=== PATIENT | female | born 1940 | race Caucasian/White ===

== ENCOUNTER 2017-06-09 21:12 | Emergency (ER) | payer MEDICARE ==
[2017-06-09] MEDS ORDERED: HYDROCODONE/APAP 7.5/325MG TABLET PO ONE (21:42)
--- NOTE | 2017-06-09 21:48 | Emergency Department Record ---
History of Present Illness - General Chief complaint: Pain Stated complaint: FELL ON LT ARM/PAIN Time Seen by Provider: 06/09/17 21:42 Source: Patient Mode of Arrival: Ambulatory Limitations: No limitations - History of Present Illness Initial comments: 76 yo female presents to ED for evaluation of left shoulder pain following and slip and fall several hours ago. Patient denies injury below the mid-humerus, denies head of neck injury, and denies lower extremity injury on examination. Patient reports taking Tylenol #3 prior to arrival which has not improved her symptoms. Patient denies the use of anticoagulation medications as well. MD Complaint: Extremity pain Onset/Timin -: Hour(s) Location: Left, Arm, Elbow History of Same: Yes Radiation: None Severity scale (1-10): 2 Consistency: Constant, Intermittent Improves with: Immobilization, Rest Worsens with: Exertion - Related Data Previous Rx's Medication Instructions Recorded Hydrocodone/Acetaminophen [[place] 1 each PO Q6HR PRN #15 tablet 03/22/14 5mg/325mg] Albuterol Sulfate [Ventolin Hfa] 1 puff INH RESP.Q4H PRN #1 inhaler 08/21/15 Fluticasone/Salmeterol 250/50 1 puff INH RESP.Q12H #1 disk 08/21/15 [Advair 250/50] Levofloxacin [Levaquin] 500 mg PO DAILY #12 tablet 08/21/15 Hydrocodone/Acetaminophen [[place] 1 tab PO Q6H PRN #15 tab 06/09/17 5mg/325mg] Allergies Allergy/AdvReac Type Severity Reaction Status Date / Time animal dander Allergy Intermediate DIFFICULTY Verified 06/09/17 21:22 BREATHING ibuprofen [IBUPROFEN] Allergy Unknown CONGESTION Verified 06/09/17 21:22 Penicillins [PENICILLINS] Allergy Unknown PT UNSURE Verified 06/09/17 21:22 OF REACTION Travel Screening - Travel/Exposure Within Last 30 Days Have you traveled within the last 30 days?: No - Travel/Exposure Within Last Year Have you traveled outside the [place] in the last year?: Yes Location Detail:: [place] - Additonal Travel Details Have you been exposed to anyone with a communicable illness?: No - Travel Symptoms Symptom Screening: None Review of Systems Constitutional: Denies: Chills, Fever, Malaise, Night sweats Eyes: Denies: Eye discharge, Eye pain ENT: Denies: Congestion, Ear pain, Epistaxis Respiratory: Denies: Cough, Dyspnea Cardiovascular: Denies: Chest pain, Dyspnea on exertion Endocrine: Denies: Fatigue, Heat or cold intolerance Gastrointestinal: Denies: Abdominal pain, Nausea, Vomiting Genitourinary: Denies: Incontinence, Retention Musculoskeletal: Reports: Arthralgia. Denies: Back pain, Gout, Joint swelling Skin: Denies: Bruising, Change in color Neurological: Denies: Abnormal gait, Confusion, Headache, Seizure Psychiatric: Denies: Anxiety Hematological/Lymphatic: Denies: Anemia, Blood Clots Past Medical History - SOCIAL HISTORY Smoking Status: Former smoker Alcohol Use: Occasional Drug Use: None - RESPIRATORY Hx Respiratory Disorders: Yes Hx Asthma: Yes - CARDIOVASCULAR Hx Cardio Disorders: Yes Hx Hypertension: Yes - NEURO Hx Neuro Disorders: No - GI Hx GI Disorders: Yes Hx Wt Loss/Wt Gain: Yes - Hx Genitourinary Disorders: No - ENDOCRINE Hx Endocrine Disorders: Yes Hx Diabetes: Yes - MUSCULOSKELETAL Hx Musculoskeletal Disorders: Yes Hx Arthritis: Yes - PSYCH Hx Psych Problems: Yes Hx Anxiety: Yes Comment:: panic attacks - HEMATOLOGY/ONCOLOGY Hx Hematology/Oncology Disorders: No Family Medical History Any Significant Family History?: No Hx Anxiety: Mother Hx Cancer: Mother Hx Depression: Mother Hx Diabetes: Mother Physical Exam - General General Appearance: Alert, Oriented x3, Cooperative, Moderate distress Limitations: No limitations - Head Head exam: Atraumatic, Normocephalic, Normal inspection Head exam detail: negative: Abrasion, Contusion, Alvarez's sign, General tenderness, Hematoma, Laceration - Eye Eye exam: Normal appearance. negative: Conjunctival injection, Periorbital swelling, Periorbital tenderness, Scleral icterus - ENT Ear exam: negative: Auricular hematoma, Auricular trauma Nasal Exam: negative: Active bleeding, Discharge, Dried blood, Foreign body Mouth exam: negative: Drooling, Laceration, Muffled voice, Tongue elevation - Neck Neck exam: Normal inspection. negative: Meningismus, Tenderness - Respiratory Respiratory exam: Normal lung sounds bilaterally. negative: Rales, Respiratory distress, Rhonchi, Stridor - Cardiovascular Cardiovascular Exam: Regular rate, Normal rhythm, Normal heart sounds Peripheral Pulses: 3+: Radial (L) - GI/Abdominal GI/Abdominal exam: Soft. negative: Rebound, Rigid, Tenderness - Rectal Rectal exam: Deferred - exam: Deferred - Extremities Extremities exam: Tenderness, Other (TTP along the midshaft of the left humerus , no gross deformity is noted, strong distal radial pulse on examination). negative: Calf tenderness, Pedal edema - Back Back exam: Denies: CVA tenderness (R), CVA tenderness (L) - Neurological Neurological exam: Alert, Normal gait, Oriented X3 - Psychiatric Psychiatric exam: Normal affect, Normal mood - Skin Skin exam: Normal color. negative: Abrasion Type of lesion: negative: abrasion Course Vital Signs 06/09/17 21:27 Temperature 98.2 F Pulse Rate [ 89 Pulse Ox Probe] Respiratory 20 Rate Blood Pressure 134/48 [Right Arm] Pulse Ox 93 L - Reevaluation(s) Reevaluation #1: 06/09/17 22:24 Left shoulder/Humerus: Non-displaced femoral neck fracture Patient was updated on her results, will place in sling with instructions to follow-up in the [facility] later this week with Dr. Berry. Disposition Disposition: Discharge Clinical Impression: Proximal humerus fracture Qualifiers: Encounter type: initial encounter Fracture type: closed Fracture morphology: unspecified fracture morphology Laterality: left Qualified Code(s): S42.202A - Unspecified fracture of upper end of left humerus, initial encounter for closed fracture Disposition: Home, Self-Care Condition: (2) Stable Instructions: Proximal Humerus Fracture (ED) Additional Instructions: Return to ED if your symptoms worsen or if you have any concerns. Jim as directed. Follow-up with Dr. Berry in 2-3 days as directed. Prescriptions: Hydrocodone/Acetaminophen [[place] 5mg/325mg] 1 tab PO Q6H PRN #15 tab PRN Reason: Pain - General Referrals: ILIR BERRY [DOCTOR OF OSTEOPATH] - [facility] [Provider Group] Forms: Patient Portal Access Time of Disposition: 22:22 Quality - Quality Measures Quality Measures: N/A - Blood Pressure Screening Does Patient Have Any of the Following: No Blood Pressure Classification: Pre-Hypertensive BP Reading Systolic Measurement: 134 Diastolic Measurement: 48 Screening for High Blood Pressure: < Pre-Hypertensive BP, F/U Documented > [ G8950] Pre-Hypertensive Follow-up Interventions: Referral to alternative/primary care provider.
--- NOTE | 2017-06-10 09:28 | RADIOLOGY REPORT ---
EXAM: LEFT HUMERUS HISTORY: INJURY. TECHNIQUE: Two views of the left humerus were performed. FINDINGS: There is a left humeral neck fracture deformity. No evidence of dislocation. Underlying osteopenia. IMPRESSION: LEFT HUMERAL NECK FRACTURE DEFORMITY. UNDERLYING OSTEOPENIA. JOB NUMBER: [id number] MTDD
--- NOTE | 2017-06-10 09:30 | RADIOLOGY REPORT ---
EXAM: LEFT SHOULDER HISTORY: INJURY. TECHNIQUE: Three views of the left shoulder were performed. FINDINGS: There is a left humeral neck fracture deformity. Underlying osteopenia. IMPRESSION: LEFT HUMERAL NECK FRACTURE DEFORMITY. JOB NUMBER: [id number] MTDD
== END 2017-06-09 22:42 | disposition home or self-care (01) ==
LOC: ER 21:12
DX: S42.215A Unspecified nondisplaced fracture of surgical neck of left humerus, initial encounter for closed fracture (principal); M25.512 Pain in left shoulder; W00.0XXA Fall on same level due to ice and snow, initial encounter; Y92.481 Parking lot as the place of occurrence of the external cause
CPT/HCPCS: 99283; 99284

== ENCOUNTER 2017-06-21 07:31 | Emergency (ER) | payer MEDICARE ==
[2017-06-21] MEDS ORDERED: HYDROMORPHONE HCL 1 MG/ML SYRINGE IVP ONE ×2 (08:24→11:17)
[2017-06-21] MEDS ORDERED: ONDANSETRON HCL IV 4 MG/2 ML VIAL IVP ONE (08:24)
[2017-06-21 09:04] LABS: BASO % 0.6 % (0-6); EOS % 3.9 % (0-6); GRAN % 74.7 % (47-80); HEMATOCRIT 42.1 % (35.0-47.0); HEMOGLOBIN 13.9 gm/dl (11.6-16.0); MEAN CELL VOLUME 95.2 fl (81-97); MEAN CORPUSCULAR HEMOGLOBIN 31.4 pg (27-33); MEAN PLATELET VOLUME 9.9 fl (7.4-10.4); MONO % 7.8 % (0-9); PLATELET COUNT 263 K/uL (130-400); RED BLOOD COUNT 4.42 M/uL (3.80-5.40); RED CELL DISTRIBUTION WIDTH 13.7 % (11.5-14.5); WHITE BLOOD COUNT W/O DIFF 6.7 K/uL (4.2-12.2)
[2017-06-21 09:12] LABS: BLOOD UREA NITROGEN 11 mg/dL (8-23); CREATININE 0.5 mg/dL (0.5-0.9); EST GLOMERULAR FILTRATION RATE > 60 mL/min
[2017-06-21 09:15] LABS: GLUCOSE,RANDOM 163 mg/dL (74-109)
--- NOTE | 2017-06-21 11:34 | Emergency Department Record ---
Anxiety - General Chief Complaint: Anxiety Stated Complaint: PANIC ATTACK Time Seen by Provider: 06/21/17 08:09 Source: Patient Mode of Arrival: Ambulatory Limitations: No limitations - History of Present Illness Initial Comments: pt awakened with panic attack. she she felt palpitations. she has had panic attacks, she feels short of breath. she has a fxd humerus from 11 days ago. Onset/Timin -: Hour(s) Symptoms: Palpitations, Other Place: Home Previous History of Same: Yes Severity: Moderate Quality: Constant, Improving Provoking factors: Emotional stress, Other Improves With: Nothing, Deep breaths Worsens With: Other Associated symptoms: Palpitations - Related Data Home Medications: Previous Rx's Medication Instructions Recorded Albuterol Sulfate [Ventolin Hfa] 1 puff INH RESP.Q4H PRN #1 inhaler 08/21/15 Fluticasone/Salmeterol 250/50 1 puff INH RESP.Q12H #1 disk 08/21/15 [Advair 250/50] Hydrocodone/Acetaminophen [[place] 1 tab PO Q6H PRN #15 tab 06/09/17 5mg/325mg] Allergies/Adverse Reactions: Allergies Allergy/AdvReac Type Severity Reaction Status Date / Time animal dander Allergy Intermediate DIFFICULTY Verified 06/21/17 07:44 BREATHING ibuprofen [IBUPROFEN] Allergy Unknown CONGESTION Verified 06/21/17 07:44 Penicillins [PENICILLINS] Allergy Unknown PT UNSURE Verified 06/21/17 07:44 OF REACTION Travel Screening - Travel/Exposure Within Last 30 Days Have you traveled within the last 30 days?: Yes Location Detail:: [place] - Travel/Exposure Within Last Year Have you traveled outside the [place] in the last year?: Yes Location Detail:: [place] in January - Additonal Travel Details Have you been exposed to anyone with a communicable illness?: No - Travel Symptoms Symptom Screening: None Review of Systems Reviewed: No additional complaints except as noted below Constitutional: Reports: As per HPI. Denies: Chills, Fever, Malaise, Night sweats, Weakness, Weight change Eyes: Reports: As per HPI. Denies: Eye discharge, Eye pain, Photophobia, Vision change ENT: Reports: As per HPI. Denies: Congestion, Dental pain, Ear pain, Epistaxis , Hearing loss, Throat pain Respiratory: Reports: As per HPI. Denies: Cough, Dyspnea, Hemoptysis, Stridor, Wheezes Cardiovascular: Reports: As per HPI. Denies: Arrhythmia, Chest pain, Dyspnea on exertion, Edema, Murmurs, Orthopnea, Palpitations, Paroxysmal nocturnal dyspnea, Rheumatic Fever, Syncope Endocrine: Reports: As per HPI. Denies: Fatigue, Heat or cold intolerance, Polydipsia, Polyuria Gastrointestinal: Reports: As per HPI. Denies: Abdominal pain, Constipation, Diarrhea, Hematemesis, Hematochezia, Melena, Nausea, Vomiting Genitourinary: Reports: As per HPI. Denies: Abnormal menses, Discharge, Dyspareunia, Dysuria, Frequency, Hematuria, Incontinence, Retention, Urgency Musculoskeletal: Reports: As per HPI. Denies: Arthralgia, Back pain, Gout, Joint swelling, Myalgia, Neck pain Skin: Reports: As per HPI. Denies: Bruising, Change in color, Change in hair/ nails, Lesions, Pruritus, Rash Neurological: Reports: As per HPI. Denies: Abnormal gait, Confusion, Headache, Numbness, Paresthesias, Seizure, Tingling, Tremors, Vertigo, Weakness Psychiatric: Reports: As per HPI. Denies: Anxiety, Auditory hallucinations, Depression, Homicidal thoughts, Suicidal thoughts, Visual hallucinations Hematological/Lymphatic: Reports: As per HPI. Denies: Anemia, Blood Clots, Easy bleeding, Easy bruising, Swollen glands Past Medical History - SOCIAL HISTORY Smoking Status: Former smoker Alcohol Use: Occasional Drug Use: None - RESPIRATORY Hx Respiratory Disorders: Yes Hx Asthma: Yes - CARDIOVASCULAR Hx Cardio Disorders: Yes Hx Hypertension: Yes - NEURO Hx Neuro Disorders: No - GI Hx GI Disorders: Yes Hx Wt Loss/Wt Gain: Yes - Hx Genitourinary Disorders: No - ENDOCRINE Hx Endocrine Disorders: Yes Hx Diabetes: Yes - MUSCULOSKELETAL Hx Musculoskeletal Disorders: Yes Hx Arthritis: Yes - PSYCH Hx Psych Problems: Yes Hx Anxiety: Yes Comment:: panic attacks - HEMATOLOGY/ONCOLOGY Hx Hematology/Oncology Disorders: No Family Medical History Any Significant Family History?: Yes Hx Anxiety: Mother Hx Cancer: Mother Hx Depression: Mother Hx Diabetes: Mother Physical Exam - General General Appearance: Alert, Oriented x3, Cooperative, Mild distress - Head Head exam: Normal inspection - Eye Eye exam: Normal appearance, PERRL, EOMI Pupils: Normal accommodation - ENT ENT exam: Normal exam, Mucous membranes moist, Normal external ear exam, Normal orophraynx, TM's normal bilaterally Ear exam: Normal external inspection. negative: External canal tenderness Nasal Exam: Normal inspection. negative: Discharge, Sinus tenderness Mouth exam: Normal external inspection, Tongue normal Teeth exam: Normal inspection. negative: Dental caries Throat exam: Normal inspection. negative: Tonsillar erythema, Tonsillar exudate - Neck Neck exam: Normal inspection, Full ROM. negative: Tenderness - Respiratory Respiratory exam: Normal lung sounds bilaterally. negative: Respiratory distress - Cardiovascular Cardiovascular Exam: Regular rate, Normal rhythm, Normal heart sounds - GI/Abdominal GI/Abdominal exam: Soft, Normal bowel sounds. negative: Tenderness - Rectal Rectal exam: Deferred - exam: Deferred - Extremities Extremities exam: Normal inspection, Full ROM, Normal capillary refill. negative: Tenderness - Back Back exam: Reports: Normal inspection, Full ROM. Denies: Muscle spasm, Rash noted, Tenderness - Neurological Neurological exam: Alert, CN II-XII intact, Normal gait, Oriented X3 - Psychiatric Psychiatric exam: Normal affect, Normal mood - Skin Skin exam: Dry, Intact, Normal color, Warm Course Vital Signs 06/21/17 06/21/17 07:49 09:31 Temperature 97.8 F Pulse Rate 85 Pulse Rate [ 85 Apical] Respiratory 19 18 Rate Blood Pressure 172/101 Blood Pressure 165/87 [Right Arm] Pulse Ox 92 L Medical Decision Making - Lab Data Result diagrams: 06/21/17 08:50 06/21/17 08:50 Lab Results 06/21/17 06/21/17 06/21/17 Range/Units 08:50 08:50 08:50 WBC 6.7 (4.2-12.2) K/uL RBC 4.42 (3.80-5.40) M/uL Hgb 13.9 (11.6-16.0) gm/dl Hct 42.1 (35.0-47.0) % MCV 95.2 (81-97) fl MCH 31.4 (27-33) pg MCHC 33.0 (32-36) g/dl RDW 13.7 (11.5-14.5) % Plt Count 263 (130-400) K/uL MPV 9.9 (7.4-10.4) fl Gran % 74.7 (47-80) % Lymphocytes % 13.0 L (16-45) % Monocytes % 7.8 (0-9) % Eosinophils % 3.9 (0-6) % Basophils % 0.6 (0-6) % D-Dimer 4.21 H (0-0.59) mg/L FEU Sodium 140 (136-145) mmol/L Potassium 3.8 (3.4-4.5) mmol/L Chloride 95 L (98-107) mmol/L Carbon Dioxide 35.0 H (22-29) mmol/L Anion Gap 10.0 (7-16) BUN 11 (8-23) mg/dL Creatinine 0.5 (0.5-0.9) mg/dL Estimated GFR > 60 mL/min Random Glucose 163 H (74-109) mg/dL Calcium 9.2 (8.8-10.2) mg/dL Troponin T (0-0.010) ng/mL 06/21/17 Range/Units 08:50 WBC (4.2-12.2) K/uL RBC (3.80-5.40) M/uL Hgb (11.6-16.0) gm/dl Hct (35.0-47.0) % MCV (81-97) fl MCH (27-33) pg MCHC (32-36) g/dl RDW (11.5-14.5) % Plt Count (130-400) K/uL MPV (7.4-10.4) fl Gran % (47-80) % Lymphocytes % (16-45) % Monocytes % (0-9) % Eosinophils % (0-6) % Basophils % (0-6) % D-Dimer (0-0.59) mg/L FEU Sodium (136-145) mmol/L Potassium (3.4-4.5) mmol/L Chloride (98-107) mmol/L Carbon Dioxide (22-29) mmol/L Anion Gap (7-16) BUN (8-23) mg/dL Creatinine (0.5-0.9) mg/dL Estimated GFR mL/min Random Glucose (74-109) mg/dL Calcium (8.8-10.2) mg/dL Troponin T < 0.010 (0-0.010) ng/mL Disposition Disposition: Discharge Clinical Impression: Anxiety, Pain Disposition: Home, Self-Care Condition: (1) Good Instructions: Panic Attack (ED) Additional Instructions: follow up with dr taylor and family return sooner if worse Quality - Quality Measures Quality Measures: N/A - Blood Pressure Screening Does Patient Have Any of the Following: Active Dx of HTN Blood Pressure Classification: Hypertensive Reading Systolic Measurement: 172 Diastolic Measurement: 101 Screening for High Blood Pressure: Patient Exclusion, Hx of HTN [G9744]
--- NOTE | 2017-06-21 19:23 | CT ANGIOGRAM REPORT ---
EXAM: CT ANGIOGRAM CHEST CTA w contrast HISTORY: PANIC ATTACK. TECHNIQUE: CTA chest performed following IV administration of 94 mL of Omnipaque-350 contrast. Axial images were obtained with coronal and sagittal MIP reconstructions. COMPARISON: Prior CT chest 08/19/15. FINDINGS: The mediastinal vasculature enhances normally. No intraluminal filling defect to suggest pulmonary embolus. Negative for thoracic aortic aneurysm or dissection. Cardiomegaly with coronary artery calcification. Small hiatal hernia. No mediastinal or hilar adenopathy. Postsurgical changes of the upper abdomen. Osseous structures are grossly intact. No pneumothorax. The visualized airways are patent. Stable 9 mm nodule in the posterior left lung base. Minor scarring in each lung base. No new lung nodules or masses. IMPRESSION: 1. NEGATIVE FOR PULMONARY EMBOLUS, THORACIC AORTIC ANEURYSM, OR DISSECTION. 2. CARDIOMEGALY WITH SMALL PERICARDIAL EFFUSION. STABLE 9 MM NODULE IN THE LEFT LUNG BASE. JOB NUMBER: [id number] MTDD
== END 2017-06-21 11:47 | disposition home or self-care (01) ==
LOC: ER 07:31
DX: F41.0 Panic disorder [episodic paroxysmal anxiety] (principal); R06.02 Shortness of breath; R00.2 Palpitations; I10 Essential (primary) hypertension; F17.210 Nicotine dependence, cigarettes, uncomplicated
CPT/HCPCS: 99284 ×2; 96376; 96374; 96375; 85025; 80048; 84484; 85379; 71275; 93005; 93010; Q9967; J2405; J1170

== ENCOUNTER 2019-05-09 12:37 | Observation (INO) | payer MEDICARE ==
[2019-05-09] MEDS ORDERED: IPRATROPIUM/ALBUTEROL (0.5MG/3MG) NEB INH ONE (12:49)
[2019-05-09] MEDS ORDERED: METHYLPREDNISOLONE PF 125MG/VIAL IM ONE (12:49)
--- NOTE | 2019-05-09 12:59 | Emergency Department Record ---
History of Present Illness - General Chief Complaint: Difficulty Breathing Stated Complaint: ELMA/COPD Time Seen by Provider: 05/09/19 12:49 Source: Patient, Family Mode of Arrival: Ambulatory Limitations: No limitations - History of Present Illness Initial Comments: 78 yo female presents with progressive shortness of breath over the week. She reports she has a history of COPD. 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 She states Spiriva was added to her mediations. She has been on her usually treatments and not feeling better. She states to me that she was told she qualified for home oxygen. She has not had that set up yet. She states she has "45%" function. She quit smoking many years ago. She developed asthma at age 21. PCP is in [place]. Pulmonary is Dr Powell. She denies chest pain or edema. MD Complaint: Shortness of breath -: Week(s) (1) Severity: Moderate Quality: Other (short of breath) Consistency: Intermittent Improves With: Nothing Worsens With: Exertion Known History Of: COPD Context: Other Associated Symptoms: Denies other symptoms Treatments Prior to Arrival: Bronchodilator - Related Data Home Oxygen Therapy: No Previous Rx's Medication Instructions Recorded Albuterol Sulfate [Ventolin Hfa] 1 puff INH RESP.Q4H PRN #1 inhaler 08/21/15 Fluticasone/Salmeterol 250/50 1 puff INH RESP.Q12H #1 disk 08/21/15 [Advair 250/50] Allergies Allergy/AdvReac Type Severity Reaction Status Date / Time animal dander Allergy Intermediate DIFFICULTY Verified 05/09/19 12:48 BREATHING ibuprofen [IBUPROFEN] Allergy Unknown CONGESTION Verified 05/09/19 12:48 Penicillins [PENICILLINS] Allergy Unknown PT UNSURE Verified 05/09/19 12:48 OF REACTION Review of Systems Constitutional: Denies: Chills, Fever, Malaise, Weakness Eyes: Denies: Eye discharge ENT: Denies: Congestion, Throat pain Respiratory: Reports: Dyspnea, Wheezes. Denies: Cough, Hemoptysis, Stridor Cardiovascular: Reports: Dyspnea on exertion. Denies: Chest pain, Edema, Palpitations, Syncope Endocrine: Denies: Fatigue, Polydipsia, Polyuria Gastrointestinal: Denies: Abdominal pain, Diarrhea, Nausea, Vomiting Genitourinary: Denies: Dysuria, Urgency Musculoskeletal: Denies: Arthralgia, Back pain, Myalgia Skin: Denies: Bruising, Change in color, Rash Neurological: Denies: Headache Psychiatric: Denies: Anxiety Hematological/Lymphatic: Denies: Easy bleeding, Easy bruising Past Medical History - SOCIAL HISTORY Smoking Status: Former smoker Drug Use: None - RESPIRATORY Hx Respiratory Disorders: Yes Hx Asthma: Yes - CARDIOVASCULAR Hx Cardio Disorders: Yes Hx Hypertension: Yes - NEURO Hx Neuro Disorders: No - GI Hx GI Disorders: Yes Hx Wt Loss/Wt Gain: Yes - Hx Genitourinary Disorders: No - ENDOCRINE Hx Endocrine Disorders: Yes Hx Diabetes: Yes - MUSCULOSKELETAL Hx Musculoskeletal Disorders: Yes Hx Arthritis: Yes - PSYCH Hx Psych Problems: Yes Hx Anxiety: Yes Comment:: panic attacks - HEMATOLOGY/ONCOLOGY Hx Hematology/Oncology Disorders: No Family Medical History Hx Anxiety: Mother Hx Cancer: Mother Hx Depression: Mother Hx Diabetes: Mother Physical Exam - General General Appearance: Alert, Oriented x3, Cooperative, No acute distress Limitations: No limitations - Head Head exam: Atraumatic, Normal inspection - Eye Eye exam: Normal appearance, PERRL. negative: Conjunctival injection, Scleral icterus - ENT ENT exam: Normal exam, Mucous membranes moist Ear exam: Normal external inspection Nasal Exam: Normal inspection Mouth exam: Normal external inspection - Neck Neck exam: Normal inspection - Respiratory Respiratory exam: Accessory muscle use, Decreased breath sounds, Prolonged expiratory, Wheezes. negative: Normal lung sounds bilaterally, Chest wall tenderness, Rales, Respiratory distress, Rhonchi, Stridor - Cardiovascular Cardiovascular Exam: Regular rate, Normal rhythm, Normal heart sounds Peripheral Pulses: 2+: Radial (R), Radial (L) - GI/Abdominal GI/Abdominal exam: Soft. negative: Tenderness - Rectal Rectal exam: Deferred - exam: Deferred - Extremities Extremities exam: Normal inspection. negative: Tenderness - Back Back exam: Denies: CVA tenderness (R), CVA tenderness (L) - Neurological Neurological exam: Alert, Oriented X3 - Psychiatric Psychiatric exam: Normal affect, Normal mood. negative: Agitated, Anxious - Skin Skin exam: Dry, Intact, Normal color, Warm Course - Reevaluation(s) Reevaluation #1: 05/09/19 13:21 EKG #1: 13:12 Rate: 73 Rhythm: sinus [place]: L Intervals: QRS 151, Qtc 489 ST segments: CW BBB Prior: 06/21/17 no significant changes 05/09/19 14:23 Labs were reviewed No acute abnormality She does drop into the upper 80's off oxygen I recommend OBV with oxygen, nebulized treatments, and steroids Kemi Barnrad [employer] for the admission Medical Decision Making - Lab Data Result diagrams: 05/09/19 13:05 05/09/19 13:05 Disposition Disposition: Admit Clinical Impression: COPD exacerbation Disposition: Still a Patient at [facility] Decision to Admit: Admit from ER Decision to Admit Date: 05/09/19 Decision to Admit Time: 14:25 Condition: (2) Stable Time of Disposition: 14:26 Quality - Quality Measures Quality Measures: N/A - Blood Pressure Screening Does Patient Have Any of the Following: Active Dx of HTN Blood Pressure Classification: Pre-Hypertensive BP Reading Systolic Measurement: 171 Diastolic Measurement: 89 Screening for High Blood Pressure: Patient Exclusion, Hx of HTN [G9744]
[2019-05-09 13:18] LABS: ABSOLUTE NEUTROPHIL COUNT 4.44; BASO % 0.3 % (0-6); EOS % 2.2 % (0-6); GRAN % 76.9 % (47-80); HEMATOCRIT 40.2 % (35.0-47.0); MEAN CELL VOLUME 97.8 fl (81-97); MEAN CORPUSCULAR HEMOGLOBIN 29.2 pg (27-33); MEAN CORPUSCULAR HGB CONC 29.9 g/dl (32-36); MEAN PLATELET VOLUME 9.6 fl (7.4-10.4); MONO % 6.6 % (0-9); PLATELET COUNT 198 K/uL (130-400); RED BLOOD COUNT 4.11 M/uL (3.80-5.40); RED CELL DISTRIBUTION WIDTH 14.9 % (11.5-14.5); WHITE BLOOD COUNT W/O DIFF 5.8 K/uL (4.2-12.2)
[2019-05-09 13:31] LABS: BLOOD UREA NITROGEN 12 mg/dL (8-23); CREATININE 0.5 mg/dL (0.5-0.9); EST GLOMERULAR FILTRATION RATE > 60 mL/min
[2019-05-09 13:32] LABS: TOTAL PROTEIN 6.7 g/dL (6.6-8.7)
[2019-05-09 13:34] LABS: GLUCOSE,RANDOM 241 mg/dL (74-109)
[2019-05-09 13:36] LABS: ALT/SGPT 47 U/L (<33)
[2019-05-09 13:37] LABS: ALB/GLOB RATIO 1.5 (1.1-1.8); ALKALINE PHOSPHATASE 87 U/L (35-104); AST/SGOT 32 U/L (10.0-35.0)
--- NOTE | 2019-05-09 13:48 | RADIOLOGY REPORT ---
EXAMINATION: Two View Chest Radiographs EXAM DATE: 05/09/2019 1:37 PM TECHNIQUE: Frontal and lateral views INDICATION: short of breath, copd COMPARISON: 2017 chest x-ray ENCOUNTER: Not applicable FINDINGS: The heart is enlarged but the pulmonary vascularity appears within normal limits. No lung consolidati on or pleural effusions are present. Subsegmental atelectasis is present within both lung bases, righ t worse than left. IMPRESSION: No acute cardiopulmonary abnormality. Dictated by: Gadiel Ramirez MD on 05/09/2019 1:46 PM. .
[2019-05-09] MEDS ORDERED: ALBUTEROL SULFATE (0.083%) 2.5 MG/3 ML NEB INH PRN (17:21)
[2019-05-09] MEDS ORDERED: IPRATROPIUM/ALBUTEROL (0.5MG/3MG) NEB INH SCH (18:00)
[2019-05-09] MEDS: METHYLPREDNISOLONE PF 125MG/VIAL IVP SCH ×2 (18:29→21:50)
[2019-05-09] MEDS ORDERED: IPRATROPIUM/ALBUTEROL (0.5MG/3MG) NEB INH PRN (19:11)
[2019-05-09] MEDS ORDERED: CEFTRIAXONE 1GM/50ML BAG 1 GM/50 ML BAG IVPB SCH (20:30)
[2019-05-09] MEDS ORDERED: AZITHROMYCIN 500 MG in 0.9 % SODIUM CHLORIDE 250ML 250 ML IVPB SCH (21:00)
[2019-05-09] MEDS: DOXYCYCLINE HYCLATE 100 MG CAPSULE PO SCH (21:51)
[2019-05-09] MEDS: CARVEDILOL 3.125 MG TABLET PO SCH (21:54)
[2019-05-09] MEDS: ASPIRIN 81 MG TABEC PO SCH (21:54)
[2019-05-09] MEDS: ATORVASTATIN 20 MG TABLET PO SCH (21:55)
[2019-05-09] MEDS ORDERED: PREGABALIN 50 MG CAPSULE PO SCH (22:00)
[2019-05-10] MEDS: METHYLPREDNISOLONE PF 125MG/VIAL IVP SCH ×5 (01:38→21:35)
[2019-05-10] MEDS: LEVOTHYROXINE SODIUM 50 MCG TABLET PO SCH (06:31)
--- NOTE | 2019-05-10 07:50 | History & Physical ---
History of Present Illness - Date of Service Date of Service for History & Physical: 05/10/19 - History of Present Illness Admitting Diagnosis: COPD exacerbation History of Present Illness: 78 yo female presents with progressive shortness of breath over the week. She reports she has a history of COPD. She was seen by the PA in her building architect office on Friday. She states Spiriva was added to her mediations. She has been on her usually treatments and not feeling better. She states to me that she was told she qualified for home oxygen. She has not had that set up yet. She states she has "45%" function. She quit smoking many years ago. She developed asthma at age 21. PCP is in [place]. Pulmonary is Dr Powell. She denies chest pain or edema. PAST MEDICAL/SURGICAL HISTORY Past Surgical History gastric bypass 2000 cholecystectomy 2012 ankle right 2012 breast reduction 2004 complete body lift 2003 gwyn filter in venacava 2000 hysterectomy PMH - Respiratory Hx Respiratory Disorders Yes Hx Asthma Yes Hx Chronic Obstructive Yes Pulmonary Disease (COPD) Hx Sleep Apnea Yes Hx of CPAP Yes PMH - Cardiovascular Hx Cardiovascular Disorders Yes Hx Cardiac Catheterization Yes Hx Hypertension Yes Comment: murmur PMH - Neuro Hx Neurological Disorders No PMH - GI Hx Gastrointestinal Disorders Yes Hx Gastroesophageal Reflux Yes Hx Weight Loss/Weight Gain Yes PMH - Hx Genitourinary Disorders No Hx Bladder Problem Yes: overactive bladder PMH - Endocrine Hx Endocrine Disorders Yes Hx Diabetes Yes Hx Thyroid Disease Yes: hypo PMH - Musculoskeletal Hx Musculoskeletal Disorders Yes Hx Arthritis Yes PMH - Psych Hx Psychiatric Problems Yes Hx Anxiety Yes Comment: panic attacks PMH - Hematology/Oncology Hx Hematology/Oncology No Disorders Laboratory Results WBC 5.8 K/uL (4.2-12.2) 05/09/19 13:05 RBC 4.11 M/uL (3.80-5.40) 05/09/19 13:05 Hgb 12.0 gm/dl (11.6-16.0) 05/09/19 13:05 Hct 40.2 % (35.0-47.0) 05/09/19 13:05 MCV 97.8 fl (81-97) H 05/09/19 13:05 MCH 29.2 pg (27-33) 05/09/19 13:05 MCHC 29.9 g/dl (32-36) L 05/09/19 13:05 RDW 14.9 % (11.5-14.5) H 05/09/19 13:05 Plt Count 198 K/uL (130-400) 05/09/19 13:05 MPV 9.6 fl (7.4-10.4) 05/09/19 13:05 Gran % 76.9 % (47-80) 05/09/19 13:05 Lymphocytes % 14.0 % (16-45) L 05/09/19 13:05 Monocytes % 6.6 % (0-9) 05/09/19 13:05 Eosinophils % 2.2 % (0-6) 05/09/19 13:05 Basophils % 0.3 % (0-6) 05/09/19 13:05 Absolute Neutrophils 4.44 05/09/19 13:05 Sodium 140 mmol/L (136-145) 05/09/19 13:05 Potassium 3.8 mmol/L (3.4-4.5) 05/09/19 13:05 Chloride 99 mmol/L (98-107) 05/09/19 13:05 Carbon Dioxide 30.0 mmol/L (22-29) H 05/09/19 13:05 Anion Gap 11.0 (7-16) 05/09/19 13:05 BUN 12 mg/dL (8-23) 05/09/19 13:05 Creatinine 0.5 mg/dL (0.5-0.9) 05/09/19 13:05 Estimated GFR > 60 mL/min 05/09/19 13:05 Random Glucose 241 mg/dL (74-109) H 05/09/19 13:05 Calcium 9.2 mg/dL (8.8-10.2) 05/09/19 13:05 Total Bilirubin 0.50 mg/dL (0.2-1.0) 05/09/19 13:05 AST 32 U/L (10.0-35.0) 05/09/19 13:05 ALT 47 U/L (<33) H 05/09/19 13:05 Alkaline Phosphatase 87 U/L (35-104) 05/09/19 13:05 Troponin T < 0.010 ng/mL (0-0.010) 05/09/19 13:05 Total Protein 6.7 g/dL (6.6-8.7) 05/09/19 13:05 Albumin 4.0 g/dL (4.0-5.0) 05/09/19 13:05 Globulin 2.7 gm/dL (1.4-4.8) 05/09/19 13:05 Albumin/Globulin Ratio 1.5 (1.1-1.8) 05/09/19 13:05 Vital Signs - Last 24 Hrs Temp Pulse Pulse Resp BP BP BP 05/10/19 07:39 97.8 F 76 20 167/101 05/10/19 04:00 97.3 F L 84 16 159/95 05/09/19 20:15 97.8 F 87 18 158/88 05/09/19 18:10 82 16 05/09/19 17:47 17 05/09/19 17:10 98.7 F 98 H 17 168/93 05/09/19 17:01 82 20 167/85 05/09/19 12:58 97.2 F L 70 20 171/89 05/09/19 12:55 76 18 Pulse Ox 05/10/19 07:39 96 05/10/19 04:00 98 05/09/19 20:15 94 L 05/09/19 18:10 98 05/09/19 17:47 05/09/19 17:10 92 L 05/09/19 17:01 93 L 05/09/19 12:58 92 L 05/09/19 12:55 91 L While in ED CBC unremarkable for acute infection, BP elevated 171/89, SPO2 RA 92%. It was observed her O2 dropped into the 80's while on Room air. Troponin negative. CXR negative. EKG NSR, RBBB, left arterial enlargement, unchanged from 06/21/17. She was admitted for treatment of COPD exacerbation and home O2 qu alification testing. 05/10/19 PCP:Dr Berry Pulmonology: Dr Powell Travel Screening - Travel/Exposure Within Last 30 Days Have you traveled within the last 30 days?: Yes Location Detail:: [facility] - Travel/Exposure Within Last Year Have you traveled outside the [place] in the last year?: Yes Location Detail:: [place], [place], [place], [place], [place], [place], [place], [place] in september - Additonal Travel Details Have you been exposed to anyone with a communicable illness?: No - Travel Symptoms Symptom Screening: None Review of Systems Constitutional: Denies: Chills, Fever, Malaise, Weakness Eyes: Denies: Eye discharge ENT: Denies: Congestion, Throat pain Respiratory: Reports: Dyspnea, Wheezes. Denies: Cough, Hemoptysis, Stridor Cardiovascular: Reports: Dyspnea on exertion. Denies: Chest pain, Edema, Palpi tations, Syncope Endocrine: Denies: Fatigue, Polydipsia, Polyuria Gastrointestinal: Denies: Abdominal pain, Diarrhea, Nausea, Vomiting Genitourinary: Denies: Dysuria, Urgency Musculoskeletal: Denies: Arthralgia, Back pain, Myalgia Skin: Denies: Bruising, Change in color, Rash Neurological: Denies: Headache Psychiatric: Denies: Anxiety Hematological/Lymphatic: Denies: Easy bleeding, Easy bruising Past Medical History - SOCIAL HISTORY Smoking Status: Former smoker Alcohol Use: Occasional Drug Use: None - RESPIRATORY Hx Respiratory Disorders: Yes Hx Asthma: Yes Hx Sleep Apnea: Yes Hx of CPAP: Yes - CARDIOVASCULAR Hx Cardio Disorders: Yes Hx Cardiac Cath: Yes Hx Hypertension: Yes Comment:: murmur - NEURO Hx Neuro Disorders: No - GI Hx GI Disorders: Yes Hx Wt Loss/Wt Gain: Yes - Hx Genitourinary Disorders: No Hx Bladder Problem: Yes (overactive bladder) - ENDOCRINE Hx Endocrine Disorders: Yes Hx Diabetes: Yes Hx Thyroid Disease: Yes (hypo) - MUSCULOSKELETAL Hx Musculoskeletal Disorders: Yes Hx Arthritis: Yes - PSYCH Hx Psych Problems: Yes Hx Anxiety: Yes Comment:: panic attacks - HEMATOLOGY/ONCOLOGY Hx Hematology/Oncology Disorders: No Family Medical History Any Significant Family History?: Yes Hx Anxiety: Mother Hx Cancer: Mother Hx Depression: Mother Hx Diabetes: Mother H&P Meds/Allergies - Allergies Allergies: Allergies Allergy/AdvReac Type Severity Reaction Status Date / Time animal dander Allergy Intermediate DIFFICULTY Verified 05/09/19 12:48 BREATHING ibuprofen [IBUPROFEN] Allergy Unknown CONGESTION Verified 05/09/19 12:48 Penicillins [PENICILLINS] Allergy Unknown PT UNSURE Verified 05/09/19 12:48 OF REACTION - Home Medications Home Medications Medication Instructions Recorded Confirmed Last Taken Budesonide/Formoterol Fumarate 10.2 gm IH BID 05/09/19 05/09/19 Unknown [Symbicort 160-4.5 Mcg Inhaler] Diphenhydramine HCl [Benadryl] 25 mg PO BID 05/09/19 05/09/19 Unknown Metformin HCl 500 mg PO BID 05/09/19 05/09/19 Unknown Montelukast Sodium 10 mg PO DAILY 05/09/19 05/09/19 Unknown Pregabalin (Lyrica) 100Mg Cap 100 mg PO BID 05/09/19 05/09/19 Unknown [Lyrica] Tiotropium [place] [Spiriva 4 gm IH BID 05/09/19 05/09/19 Unknown Respimat] Previous Rx's Medication Instructions Recorded Albuterol Sulfate [Ventolin Hfa] 1 puff INH RESP.Q4H PRN #1 inhaler 08/21/15 - Active Medications Active Medications: Current Medications Albuterol Sulfate (Albuterol Sulfate) 2.5 mg INH RESP.Q4H PRN PRN Reason: DIFFICULTY IN BREATHING Albuterol/Ipratropium (Duoneb) 3 ml INH RESP.Q4H.WA PRN PRN Reason: WHEEZING Stop: 05/10/19 19:10 Ascorbic Acid (Vitamin C) 500 mg PO DAILY [facility] Aspirin (Ecotrin (Ec)) 81 mg PO QHS [facility] Last Admin: 05/09/19 21:54 Dose: Not Given Documented by: Atorvastatin Calcium (Lipitor) 20 mg PO QHS [facility] Last Admin: 05/09/19 21:55 Dose: Not Given Documented by: Carvedilol (Coreg) 6.25 mg PO BID [facility] Last Admin: 05/09/19 21:54 Dose: Not Given Documented by: Citalopram Hydrobromide (Celexa) 10 mg PO DAILY [facility] Doxycycline Hyclate (Vibramycin) 100 mg PO BID [facility] Last Admin: 05/09/19 21:51 Dose: 100 mg Documented by: Enoxaparin Sodium (Lovenox) 40 mg SQ DAILY [facility] Fosinopril Sodium (Monopril) 20 mg PO DAILY [facility] Glimepiride (Amaryl) 1 mg PO DAILY [facility] Glipizide (Glucotrol) 5 mg PO BIDWM [facility] Isosorbide Mononitrate (Imdur) 60 mg PO DAILY [facility] Levothyroxine Sodium (Synthroid) 100 mcg PO DAILYTHY [facility] Last Admin: 05/10/19 06:31 Dose: 100 mcg Documented by: Metformin HCl (Glucophage Ir) 500 mg PO BIDWM [facility] Methylprednisolone Sodium Succinate (Solu-Medrol) 60 mg IVP Q8H [facility] Last Admin: 05/10/19 06:30 Dose: 60 mg Documented by: Non-Formulary Medication (Sitagliptin Phosphate [Januvia]) 100 mg PO DAILY [facility] Non-Formulary Medication (Solifenacin Succinate [Vesicare]) 5 mg PO DAILY [facility] Pregabalin (Lyrica) 50 mg PO BID [facility] Last Admin: 05/09/19 21:55 Dose: Not Given Documented by: Physical Exam - Vital Signs Vital Signs: Vital Signs - Last 24 Hrs Temp Pulse Pulse Resp BP BP BP 05/10/19 04:00 97.3 F L 84 16 159/95 05/09/19 20:15 97.8 F 87 18 158/88 05/09/19 18:10 82 16 05/09/19 17:47 17 05/09/19 17:10 98.7 F 98 H 17 168/93 05/09/19 17:01 82 20 167/85 05/09/19 12:58 97.2 F L 70 20 171/89 05/09/19 12:55 76 18 Pulse Ox 05/10/19 04:00 98 05/09/19 20:15 94 L 05/09/19 18:10 98 05/09/19 17:47 05/09/19 17:10 92 L 05/09/19 17:01 93 L 05/09/19 12:58 92 L 05/09/19 12:55 91 L - General General Appearance: Alert, Oriented x3, Cooperative, No acute distress Limitations: No limitations - Head Head exam: Atraumatic, Normal inspection - Eye Eye exam: Normal appearance, PERRL. negative: Conjunctival injection, Scleral icterus - ENT ENT exam: Normal exam, Mucous membranes moist Ear exam: Normal external inspection Nasal Exam: Normal inspection Mouth exam: Normal external inspection - Neck Neck exam: Normal inspection - Respiratory Respiratory exam: Accessory muscle use, Decreased breath sounds, Prolonged expiratory, Wheezes. negative: Normal lung sounds bilaterally, Chest wall tenderness, Rales, Respiratory distress, Rhonchi, Stridor - Cardiovascular Cardiovascular Exam: Regular rate, Normal rhythm, Normal heart sounds Peripheral Pulses: 2+: Radial (R), Radial (L) - GI/Abdominal GI/Abdominal exam: Soft. negative: Tenderness - Rectal Rectal exam: Deferred - exam: Deferred - Extremities Extremities exam: Normal inspection. negative: Tenderness - Back Back exam: Denies: CVA tenderness (R), CVA tenderness (L) - Neurological Neurological exam: Alert, Oriented X3 - Psychiatric Psychiatric exam: Normal affect, Normal mood. negative: Agitated, Anxious - Skin Skin exam: Dry, Intact, Normal color, Warm Results - Labs Result Diagrams: 05/09/19 13:05 05/09/19 13:05 Labs Last 24 Hours: Laboratory Results - last 24 hr 05/09/19 05/09/19 05/09/19 13:05 13:05 13:05 WBC 5.8 RBC 4.11 Hgb 12.0 Hct 40.2 MCV 97.8 H MCH 29.2 MCHC 29.9 L RDW 14.9 H Plt Count 198 MPV 9.6 Gran % 76.9 Lymphocytes % 14.0 L Monocytes % 6.6 Eosinophils % 2.2 Basophils % 0.3 Absolute Neutrophils 4.44 Sodium 140 Potassium 3.8 Chloride 99 Carbon Dioxide 30.0 H Anion Gap 11.0 BUN 12 Creatinine 0.5 Estimated GFR > 60 Random Glucose 241 H Calcium 9.2 Total Bilirubin 0.50 AST 32 ALT 47 H Alkaline Phosphatase 87 Troponin T < 0.010 Total Protein 6.7 Albumin 4.0 Globulin 2.7 Albumin/Globulin Ratio 1.5 VTE H&P Assessment - Risk for VTE Risk for VTE: Yes Risk Level: Moderate Risk Assessment Date: 05/10/19 Risk Assessment Time: 10:13 VTE Orders Placed or Will Be Placed: Yes Plan - Detailed Diagnosis and Plan (1) COPD exacerbation Current Visit: Yes Status: Acute Base Code: J44.1 - CHRONIC OBSTRUCTIVE PULMONARY DISEASE W (ACUTE) EXACERBATION Comment: 05/10/19 - CXR negative, WBC normal - No home O2 but was recommended by her Voice Instructor - Home O2 qualifier - Solumedrol 60mg Q8hr - Telemetry - Albuterol Q2hr PRN, Duoneb Q4hrWA - Breo 200 QD - Doxycycline 100mg BID (QTc 498, on Celexa) (2) HTN (hypertension) Current Visit: Yes Status: Acute Base Code: I10 - ESSENTIAL (PRIMARY) HYPERTENSION Comment: 05/10/19 - Bp in ED 171/89 - Coreg 6.25 BID, Zestril 20mg QD, Imdur 60mg QD (3) Diabetes mellitus, type 2 Current Visit: Yes Status: Acute Qualifiers: Diabetes mellitus termite control service representative insulin use: without termite control service representative use Diabetes mellitus complication status: without complication Qualified Code(s): E11.9 - Type 2 diabetes mellitus without complications Base Code: E11.9 - TYPE 2 DIABETES MELLITUS WITHOUT COMPLICATIONS Comment: 05/10/19 - 2gm sodium ADA diet - Amaryl 1mg QD, Metformin 500mg BID - Accu check AC/HS with sliding scale (4) Hypothyroidism Current Visit: Yes Status: Acute Base Code: E03.9 - HYPOTHYROIDISM, UNSPECIFIED Comment: 05/10/19 - Synthroid 100mcg QD (5) Full code status Current Visit: Yes Status: Acute Base Code: Z78.9 - OTHER SPECIFIED HEALTH STATUS Comment: 05/10/19 (6) DVT prophylaxis Current Visit: No Status: Acute Base Code: ESL6062 - Comment: 05/10/19- Patient's age places her in high risk for DVT. Will give lovenox 40mg SQ daily for prophylaxis.
[2019-05-10] MEDS: METFORMIN 500 MG TABLET PO SCH ×2 (07:56→18:53)
[2019-05-10] MEDS ORDERED: GLIPIZIDE 5 MG TABLET PO SCH (08:00)
[2019-05-10] MEDS ORDERED: ACETAMINOPHEN 500 MG TABLET PO PRN (08:47)
[2019-05-10] MEDS: CARVEDILOL 3.125 MG TABLET PO SCH ×3 (08:50→21:27)
[2019-05-10] MEDS ORDERED: SOLIFENACIN SUCCINATE 5 MG PO SCH (10:00)
[2019-05-10] MEDS ORDERED: Non-Formulary MISC (Sitagliptin Phosphate [Januvia] 100 MG) PO SCH (10:00)
[2019-05-10] MEDS ORDERED: FOSINOPRIL SODIUM 20 MG TABLET PO SCH (10:00)
[2019-05-10] MEDS: BREO (FLUTICASONE/VILANTEROL) 200MCG/25MCG INHALER INH SCH (10:28)
[2019-05-10] MEDS: GLIMEPIRIDE 2 MG TABLET PO SCH (12:01)
[2019-05-10] MEDS: ENOXAPARIN 40 MG/0.4 ML SYR SQ SCH (12:09)
[2019-05-10] MEDS: CITALOPRAM 20 MG TABLET PO SCH (12:12)
[2019-05-10] MEDS: LISINOPRIL 20 MG TABLET PO SCH (12:12)
[2019-05-10] MEDS: TRAMADOL HCL 50 MG TABLET PO PRN ×2 (12:12→18:53)
[2019-05-10] MEDS: PREGABALIN (LYRICA) 100MG CAPSULE PO SCH ×2 (12:12→21:27)
[2019-05-10] MEDS: DOXYCYCLINE HYCLATE 100 MG CAPSULE PO SCH ×2 (12:13→21:27)
[2019-05-10] MEDS: ASCORBIC ACID 500 MG TAB PO SCH (12:13)
[2019-05-10] MEDS: ISOSORBIDE MONONITRATE 60 MG TAB.ER.24H PO SCH (12:13)
[2019-05-10] MEDS: NOVOLOG FLEXPEN (INSULIN ASPART) 100 UNITS/ML SQ SCH ×3 (12:18→23:25)
[2019-05-10] MEDS: IPRATROPIUM/ALBUTEROL (0.5MG/3MG) NEB INH SCH ×3 (14:15→21:30)
[2019-05-10] MEDS: ASPIRIN 81 MG TABEC PO SCH (21:26)
[2019-05-10] MEDS: ATORVASTATIN 20 MG TABLET PO SCH (21:27)
[2019-05-11] MEDS: LEVOTHYROXINE SODIUM 50 MCG TABLET PO SCH (06:29)
[2019-05-11] MEDS: IPRATROPIUM/ALBUTEROL (0.5MG/3MG) NEB INH SCH ×2 (06:30→10:24)
[2019-05-11] MEDS: METHYLPREDNISOLONE PF 125MG/VIAL IVP SCH ×2 (06:32→14:47)
[2019-05-11] MEDS: NOVOLOG FLEXPEN (INSULIN ASPART) 100 UNITS/ML SQ SCH ×2 (08:46→12:29)
[2019-05-11] MEDS: METFORMIN 500 MG TABLET PO SCH (09:26)
[2019-05-11] MEDS: ASCORBIC ACID 500 MG TAB PO SCH (09:27)
[2019-05-11] MEDS: CARVEDILOL 3.125 MG TABLET PO SCH (09:27)
[2019-05-11] MEDS: PREGABALIN (LYRICA) 100MG CAPSULE PO SCH (09:27)
[2019-05-11] MEDS: LISINOPRIL 20 MG TABLET PO SCH (09:28)
[2019-05-11] MEDS: GLIMEPIRIDE 2 MG TABLET PO SCH (09:28)
[2019-05-11] MEDS: ISOSORBIDE MONONITRATE 60 MG TAB.ER.24H PO SCH (09:28)
[2019-05-11] MEDS: DOXYCYCLINE HYCLATE 100 MG CAPSULE PO SCH (09:29)
[2019-05-11] MEDS: CITALOPRAM 20 MG TABLET PO SCH (09:29)
[2019-05-11] MEDS: ENOXAPARIN 40 MG/0.4 ML SYR SQ SCH (09:30)
[2019-05-11] MEDS: BREO (FLUTICASONE/VILANTEROL) 200MCG/25MCG INHALER INH SCH (10:24)
--- NOTE | 2019-05-11 12:54 | Discharge Note ---
VTE H&P Assessment - Risk for VTE Risk for VTE: Yes Risk Level: Moderate Risk Assessment Date: 05/10/19 Risk Assessment Time: 10:13 VTE Orders Placed or Will Be Placed: Yes Discharge Medications - Discharge Medications Prescriptions: Prednisone [Prednisone 10Mg] 10 mg PO ASDIR #30 tab Doxycycline Hyclate [Vibramycin] 100 mg PO BID #14 capsule Home Medications: Ambulatory Orders Ascorbic Acid [Vitamin C] 500 mg PO DAILY 03/22/14 [Last Taken 05/09/19] Aspirin [Aspirin EC] 81 mg PO QHS 03/22/14 [Last Taken 05/09/19] Atorvastatin Calcium [Lipitor] 20 mg PO QHS 03/22/14 [Last Taken 05/09/19] Calcium Citrate/Vitamin D3 [Calcium Citrate - Vit D Tablet] 1 each PO QHS 03/22/14 [Last Taken 05/09/19] Carvedilol [Coreg] 6.25 mg PO BID 03/22/14 [Last Taken 05/09/19] Citalopram Hydrobromide [Celexa] 10 mg PO DAILY 03/22/14 [Last Taken 05/09/19] Fish Oil/Dha/Epa [Fish Oil 1,200 mg Fish Oil] 1 each PO QHS 03/22/14 [Last Taken 05/09/19] Fosinopril Sodium 20 mg PO DAILY 03/22/14 [Last Taken 05/09/19] Glimepiride [Amaryl] 2 mg PO BID 03/22/14 [Last Taken 05/09/19] Isosorbide Mononitrate [Imdur] 60 mg PO DAILY 03/22/14 [Last Taken 05/09/19] Levothyroxine Sodium 100 mcg PO DAILY 03/22/14 [Last Taken 05/09/19] Pnv,Calcium 72/Iron/Folic Acid [Pnv Plus Multivit Tab] 1 each PO DAILY 03/22/14 [Last Taken 05/09/19] Sitagliptin Phosphate [Januvia] 100 mg PO DAILY 03/22/14 [Last Taken 05/09/19] Solifenacin Succinate [Vesicare] 5 mg PO DAILY 03/22/14 [Last Taken 05/09/19] Albuterol Sulfate [Ventolin Hfa] 1 puff INH RESP.Q4H PRN #1 inhaler 08/21/15 [Last Taken 05/09/19] Budesonide/Formoterol Fumarate [Symbicort 160-4.5 Mcg Inhaler] 10.2 gm IH BID 05/09/19 [Last Taken Unknown] Diphenhydramine HCl [Benadryl] 25 mg PO BID 05/09/19 [Last Taken Unknown] Metformin HCl 500 mg PO BID 05/09/19 [Last Taken Unknown] Montelukast Sodium 10 mg PO DAILY 05/09/19 [Last Taken Unknown] Pregabalin (Lyrica) 100Mg Cap [Lyrica] 100 mg PO BID 05/09/19 [Last Taken Unknown] Tiotropium [place] [Spiriva Respimat] 4 gm IH BID 05/09/19 [Last Taken Unknown] Doxycycline Hyclate [Vibramycin] 100 mg PO BID #14 capsule 05/11/19 [Last Taken Unknown] Prednisone [Prednisone 10Mg] 10 mg PO ASDIR #30 tab 05/11/19 [Last Taken Unknown] Discharge Note - Date Date of Discharge Note: 05/11/19 Condition: (2) Stable Additional Instructions: Appointment with Princess Lynn NP at [facility] May 18 at 10:40am. This is a transition of care appointment. You can reschedule your normal appointment with Dr. Khanna while in the office for this visit. . Please call Dr. Hernandez's office to schedule an appointment at your earliest convenience once you are out of the hospital. oxygen set up and use oxygen at 2 liters per minute Referrals: KAMILLE JARVIS M.D. [Primary Care Provider] - Forms: Patient Portal Access Activity at Discharge: Increase Activity as Tolerated
--- NOTE | 2019-05-12 09:51 | Discharge Summary ---
DATE: 05/11/2019 This is an observation patient on-call. DISCHARGE DIAGNOSES: 1. Exacerbation of chronic obstructive pulmonary disease. 2. Hypoxia. 3. Bronchitis, on Vibramycin 100 mg b.i.d. for 7 days. 4. History of hypertension. 5. Diabetes mellitus. 6. Hypothyroidism. 7. Coronary artery disease. 8. Hypercholesterolemia. ATTENDING PHYSICIAN: Pb King DO REASON FOR HOSPITALIZATION: This 78-year-old female was short of breath, progressively worse over the week prior to admission. Came into the emergency department. Pulmonology set up the oxygen therapy but she has not gotten it. She came in. Pulse ox was running in the low 80s and she was admitted to the hospital to get oxygen set up and to give her some Solu-Medrol and Vibramycin twice a day to see if that would improve her breathing. SIGNIFICANT FINDINGS: Chest x-ray. No acute cardiopulmonary abnormalities seen. WBC 5800, hemoglobin 12.0, potassium 3.8, BUN 12, creatinine 0.5, troponin T was negative x1 time point. THERAPY PROVIDED: The patient was put on oxygen, Solu-Medrol 60 mg q.8 h., breathing treatment, oxygen therapy and was doing much better. She was also started on Vibramycin 100 mg twice a day. She denies any chest pain and she is anxious to go home. The patient is much I PD. DISCHARGE INSTRUCTIONS: Follow up with primary doctor, Dr. Auguste at [facility] on Friday. She may be seeing someone who is covering for the hospital discharge transition. Also follow up with medical educator, Dr. Wilde, as soon as possible after discharge. She is going to be going home with oxygen at 2L/min nasal cannula. Also sending home prednisone taper from 40 mg 4 pills for 3 days, 3 pills for 3 days, 2 pills for 3 days, and 1 pill for 3 days. Vibramycin 100 mg b.i.d. for 7 days and continue her home medications and inhalers. ROBERTD
== END 2019-05-11 14:25 | disposition home or self-care (01) ==
LOC: ER 12:37 → MEDSURG 16:19
PROVIDERS: ADMIT Internal Medicine; ATTEND Internal Medicine
DX: J44.1 Chronic obstructive pulmonary disease with (acute) exacerbation (principal); J45.909 Unspecified asthma, uncomplicated; I10 Essential (primary) hypertension; E11.9 Type 2 diabetes mellitus without complications; Z79.84 Long term (current) use of oral hypoglycemic drugs; M19.90 Unspecified osteoarthritis, unspecified site; G47.33 Obstructive sleep apnea (adult) (pediatric); Z98.61 Coronary angioplasty status; R01.1 Cardiac murmur, unspecified; K21.9 Gastro-esophageal reflux disease without esophagitis; N32.81 Overactive bladder; E03.9 Hypothyroidism, unspecified
CPT/HCPCS: 36416; 71046; 80053; 82948; 84484; 85025; 93005; 93010; 94618; 94640; 94760; 94761; 96372; 99217; 99220; 99285; J0696; J1650; J2930